=== PATIENT | male | born 1980 | race Caucasian/White ===

== ENCOUNTER → 2022-10-23 | Outpatient (CLI) | payer OTHER | LOC: WOUNDCARE 14:00 | PROVIDERS: ATTEND Family Medicine | DX: T23.391A Burn of third degree of multiple sites of right wrist and hand, initial encounter (principal); T31.10 Burns involving 10-19% of body surface with 0% to 9% third degree burns; S67.21XA Crushing injury of right hand, initial encounter; R60.0 Localized edema | CPT/HCPCS: 16020; G0463 ==

== ENCOUNTER → 2022-11-06 | Outpatient (CLI) | payer OTHER | LOC: WOUNDCARE 08:50 | PROVIDERS: ATTEND Family Medicine | DX: T23.391A Burn of third degree of multiple sites of right wrist and hand, initial encounter (principal); T31.10 Burns involving 10-19% of body surface with 0% to 9% third degree burns; S67.21XA Crushing injury of right hand, initial encounter; R60.0 Localized edema; I96 Gangrene, not elsewhere classified; X58.XXXA Exposure to other specified factors, initial encounter | CPT/HCPCS: 16020; G0463 ==

== ENCOUNTER → 2022-11-13 | Outpatient (CLI) | payer OTHER | LOC: WOUNDCARE 08:22 | PROVIDERS: ATTEND Family Medicine | DX: I96 Gangrene, not elsewhere classified (principal); T23.391A Burn of third degree of multiple sites of right wrist and hand, initial encounter; T31.10 Burns involving 10-19% of body surface with 0% to 9% third degree burns; S67.21XA Crushing injury of right hand, initial encounter; R60.0 Localized edema | CPT/HCPCS: 16020; G0463 ==

== ENCOUNTER → 2022-11-20 | Outpatient (CLI) | payer OTHER | LOC: WOUNDCARE 08:20 | PROVIDERS: ATTEND Family Medicine | DX: T23.391A Burn of third degree of multiple sites of right wrist and hand, initial encounter (principal); T31.10 Burns involving 10-19% of body surface with 0% to 9% third degree burns; S67.21XA Crushing injury of right hand, initial encounter; I96 Gangrene, not elsewhere classified | CPT/HCPCS: 16020; A6253; G0463 ==

== ENCOUNTER → 2022-11-27 | Outpatient (CLI) | payer OTHER | LOC: WOUNDCARE 08:19 | PROVIDERS: ATTEND Family Medicine | DX: T23.391A Burn of third degree of multiple sites of right wrist and hand, initial encounter (principal); T31.10 Burns involving 10-19% of body surface with 0% to 9% third degree burns; S67.21XA Crushing injury of right hand, initial encounter; I96 Gangrene, not elsewhere classified | CPT/HCPCS: 16020; G0463 ==

== ENCOUNTER → 2022-12-04 | Outpatient (CLI) | payer OTHER | LOC: WOUNDCARE 08:22 | PROVIDERS: ATTEND Family Medicine | DX: I96 Gangrene, not elsewhere classified (principal); T23.391A Burn of third degree of multiple sites of right wrist and hand, initial encounter; T31.10 Burns involving 10-19% of body surface with 0% to 9% third degree burns; S67.21XA Crushing injury of right hand, initial encounter | CPT/HCPCS: 16020; G0463 ==

== ENCOUNTER → 2022-12-11 | Outpatient (CLI) | payer OTHER | LOC: WOUNDCARE 08:21 | PROVIDERS: ATTEND Family Medicine | DX: I96 Gangrene, not elsewhere classified (principal); T23.391A Burn of third degree of multiple sites of right wrist and hand, initial encounter; T31.10 Burns involving 10-19% of body surface with 0% to 9% third degree burns; S67.21XA Crushing injury of right hand, initial encounter; X58.XXXA Exposure to other specified factors, initial encounter | CPT/HCPCS: 16020; G0463 ==

== ENCOUNTER → 2022-12-18 | Outpatient (CLI) | payer OTHER | LOC: WOUNDCARE 08:23 | PROVIDERS: ATTEND Family Medicine | DX: I96 Gangrene, not elsewhere classified (principal); T23.391A Burn of third degree of multiple sites of right wrist and hand, initial encounter; T31.10 Burns involving 10-19% of body surface with 0% to 9% third degree burns; S67.21XA Crushing injury of right hand, initial encounter | CPT/HCPCS: 16020; G0463 ==

== ENCOUNTER → 2022-12-25 | Outpatient (CLI) | payer OTHER | LOC: WOUNDCARE 08:20 | PROVIDERS: ATTEND Family Medicine | DX: T23.399A Burn of third degree of multiple sites of unspecified wrist and hand, initial encounter (principal); T31.10 Burns involving 10-19% of body surface with 0% to 9% third degree burns; I96 Gangrene, not elsewhere classified; S67.21XA Crushing injury of right hand, initial encounter | CPT/HCPCS: 16020; 87070; 87205; G0463 ==

== ENCOUNTER → 2023-01-01 | Outpatient (CLI) | payer OTHER | LOC: WOUNDCARE 08:22 | PROVIDERS: ATTEND Family Medicine | DX: I96 Gangrene, not elsewhere classified (principal); T23.391A Burn of third degree of multiple sites of right wrist and hand, initial encounter; T31.10 Burns involving 10-19% of body surface with 0% to 9% third degree burns; S67.21XA Crushing injury of right hand, initial encounter; X58.XXXA Exposure to other specified factors, initial encounter | CPT/HCPCS: 16020; G0463 ==

== ENCOUNTER 2023-01-08 13:38 | Outpatient (RCR) | payer OTHER | END 2023-01-10 | disposition home or self-care (01) | PROVIDERS: ATTEND Family Medicine | DX: S67.21XA Crushing injury of right hand, initial encounter (principal); T23.391A Burn of third degree of multiple sites of right wrist and hand, initial encounter; T31.10 Burns involving 10-19% of body surface with 0% to 9% third degree burns ==

== ENCOUNTER → 2023-01-15 | Outpatient (CLI) | payer OTHER | LOC: WOUNDCARE 08:22 | PROVIDERS: ATTEND Family Medicine | DX: T23.391A Burn of third degree of multiple sites of right wrist and hand, initial encounter (principal); T31.10 Burns involving 10-19% of body surface with 0% to 9% third degree burns; S67.21XA Crushing injury of right hand, initial encounter; S60.521A Blister (nonthermal) of right hand, initial encounter | CPT/HCPCS: 99212 ==

== ENCOUNTER 2023-02-09 08:10 | Outpatient (RCR) | payer OTHER | END 2023-02-10 | disposition home or self-care (01) | PROVIDERS: ATTEND Family Medicine | DX: S67.21XD Crushing injury of right hand, subsequent encounter (principal); T23.391D Burn of third degree of multiple sites of right wrist and hand, subsequent encounter; T31.10 Burns involving 10-19% of body surface with 0% to 9% third degree burns ==

== ENCOUNTER 2023-02-16 11:05 | Outpatient (RCR) | payer OTHER | END 2023-02-16 17:00 | disposition home or self-care (01) | PROVIDERS: ATTEND Family Medicine | DX: S67.21XD Crushing injury of right hand, subsequent encounter (principal); T23.391D Burn of third degree of multiple sites of right wrist and hand, subsequent encounter; T31.10 Burns involving 10-19% of body surface with 0% to 9% third degree burns ==